=== PATIENT | male | born 1955 | race Caucasian/White ===

== ENCOUNTER → 2018-02-17 | Outpatient (CLI) | payer OTHER ==
--- NOTE | 2018-02-17 16:23 | RAD ---
2 view cervical spine series: INDICATIONS: Neck pain and stiffness for many years. FINDINGS: No acute fracture or discitis or osteolytic process or prevertebral soft tissue swelling is evident. There is mild retrolisthesis of C4-5. There is moderate disc space narrowing and mild degenerative endplate spurring at this level and also at C5-6. Mild degenerative disc space narrowing and endplate spurring is seen at C6-7. Mild facet arthropathy is evident. IMPRESSION: Mild to moderate degenerative cervical spondylosis. Incidental note is made of bilateral carotid arterial calcified atheromatous disease. 2 view lumbar spine series INDICATIONS: Worsening lower back pain for many years. Patient had lower back surgery over 30 years ago. FINDINGS: No compression fracture or discitis or osteolytic process or anterolisthesis is evident. Mild dextroscoliosis is seen. Mild degenerative endplate spurring is seen throughout the lumbar spine without significant degenerative disc space narrowing. IMPRESSION: Minimal degenerative lumbar spondylosis and mild dextroscoliosis. Electronically signed by: Aaron Feliz MD (02/17/2018 4:20 PM) [facility]
== END | disposition home or self-care (01) ==
LOC: RAD 08:52
PROVIDERS: ATTEND Surgery
DX: M47.892 Other spondylosis, cervical region (principal); M47.896 Other spondylosis, lumbar region; M41.86 Other forms of scoliosis, lumbar region; M46.06 Spinal enthesopathy, lumbar region; I70.0 Atherosclerosis of aorta; M50.323 Other cervical disc degeneration at C6-C7 level; M48.02 Spinal stenosis, cervical region; M12.88 Other specific arthropathies, not elsewhere classified, other specified site
CPT/HCPCS: 72040; 72100